=== PATIENT | female | born 1980 | race Caucasian/White ===

== ENCOUNTER 2018-02-12 14:28 | Inpatient (IN) | payer OTHER ==
[~2018-02-12] VITALS: Ht 165.1 cm; Wt 89.9 kg
[~2018-02-12 14:28] MED LIST: ALBU18HF INH; AZIT500T5 PO; CEFD300C37 PO; OXYC-302 PO
[2018-02-12] MEDS ORDERED: DEXAMETHASONE 4 MG/ML, 1ML IVPush ONE (16:00)
[2018-02-12] MEDS ORDERED: SODIUM CHLORIDE 0.9% 1,000 ML IV ONE ×2 (16:00→17:00)
[2018-02-12] MEDS ORDERED: ONDANSETRON ODT 4 MG PO PRN (16:30)
[2018-02-12] MEDS ORDERED: ONDANSETRON 2MG/ML, 2ML IVPush PRN (16:30)
[2018-02-12] MEDS ORDERED: DEXAMETHASONE 4 MG/ML, 1ML ONE (16:48)
[2018-02-12] MEDS ORDERED: SODIUM CHLORIDE FLUSH 10ML SYR IVF PRN (17:00)
[2018-02-12] MEDS ORDERED: SODIUM CHLORIDE FLUSH 10ML SYR IVF ONE (17:00)
[2018-02-12] MEDS ORDERED: KETOROLAC 30 MG/1 ML ONE (17:02)
[2018-02-12] MEDS: KETOROLAC 30 MG/1 ML IV PRN (17:02)
[2018-02-12 17:07] LABS: HCT (SEDRATE) 37.3 % (34.6-47.8)
[2018-02-12] MEDS ORDERED: NS + 20MEQ KCL 1,000 ML IV SCH (18:00)
[2018-02-12] MEDS: AMPICILLIN/SULBACTAM 3 GM in SODIUM CHLORIDE 0.9% 100 ML IV SCH (18:07)
[2018-02-12 18:35] VITALS: BP 86/59
[2018-02-12] MEDS ORDERED: SODIUM CHLORIDE 0.9% 1,000 ML IV SCH (19:30)
[2018-02-12 19:46] LABS: MEAN CORPUSCULAR HEMOGLOBIN 30.6 pg (27.0-34.8); MEAN CORPUSCULAR VOLUME 90.1 fL (80-100); MEAN PLATELET VOLUME 7.9 fL (7.4-10.4); PLATELET COUNT 232 x10^3/uL (130-400); RED BLOOD COUNT 3.97 x10^6/uL (3.82-5.3); RED CELL DISTRIBUTION WIDTH 13.3 % (9.6-15.2)
[2018-02-12 19:52] LABS: MD YES
[2018-02-12 19:55] LABS: INTERNATIONAL NORMALIZED RATIO 1.23 (0.93-1.1); PROTHROMBIN TIME 12.6 Seconds (9.6-11.5)
[2018-02-12 19:58] LABS: ALANINE AMINOTRANSFERASE 41 U/L (12-78); ALBUMIN 2.5 g/dL (3.4-5.0); ANION GAP 9 mmol/L (5-15); CALCIUM 7.6 mg/dL (8.5-10.1); CHLORIDE 110 mmol/L (98-107); CREATININE 0.41 mg/dL (0.55-1.02)
[2018-02-12 20:00] LABS: ALKALINE PHOSPHATASE 77 U/L (45-117); BILIRUBIN,TOTAL 0.9 mg/dL (0.2-1.0); TOTAL PROTEIN 6.2 g/dL (6.4-8.2)
[2018-02-12] MEDS ORDERED: PHARMACOKINETIC CONSULTATION MC ONE (20:00)
[2018-02-12] MEDS ORDERED: VANCOMYCIN PER PHARMACY MC PRN (20:00)
[2018-02-12] MEDS ORDERED: PHARMACOKINETIC MONITORING MC PRN (20:00)
[2018-02-12 20:14] VITALS: BP 83/59
[2018-02-12 20:25] LABS: BAND#(MANUAL) 0.38 x10^3/uL; BANDS%(MANUAL) 2 % (0-7); LYMPH#(MANUAL) 1.13 x10^3/uL (1-3.4); LYMPHS% (MANUAL) 6 % (22-44); MONOS#(MANUAL) 0.94 x10^3/uL (0.3-2.7); MONOS% (MANUAL) 5 % (2-9); SEG#(MANUAL) 16.36 x10^3/uL (1.8-6.8); SEGS% (MANUAL) 87 % (42-75)
[2018-02-12 20:26] LABS: <PLATELET ESTIMATE> ADEQUATE; <PLT MORPHOLOGY> NORMAL PLT MORPH; <RBC MORPHOLOGY> NORMAL
[2018-02-12 20:55] VITALS: BP 86/68
[2018-02-12] MEDS: SODIUM CHLORIDE 0.9% 1,000 ML IV SCH (21:00)
[2018-02-12] MEDS ORDERED: MAGNESIUM SULFATE PMX 2GM/50ML 50 ML IV ONE (21:00)
[2018-02-12 21:10] VITALS: BP 89/65
[2018-02-12] MEDS: VANCOMYCIN 1,600 MG in SODIUM CHLORIDE 0.9% 250 ML IV SCH (21:20)
[2018-02-12 23:31] VITALS: BP 95/67
[2018-02-13 00:43] VITALS: BP 86/61
[2018-02-13] MEDS: SODIUM CHLORIDE 0.9% 1,000 ML IV SCH ×4 (01:00→13:08)
[2018-02-13] MEDS: DEXAMETHASONE 4 MG/ML, 1ML IVPush SCH ×3 (01:33→17:37)
[2018-02-13] MEDS: AMPICILLIN/SULBACTAM 3 GM in SODIUM CHLORIDE 0.9% 100 ML IV SCH ×4 (01:33→20:04)
[2018-02-13 05:33] VITALS: BP 80/50
[2018-02-13 06:06] LABS: MEAN CORPUSCULAR HEMOGLOBIN 30.7 pg (27.0-34.8); MEAN CORPUSCULAR HGB CONC 33.6 g/dL (32.4-35.8); MEAN CORPUSCULAR VOLUME 91.4 fL (80-100); MEAN PLATELET VOLUME 8.2 fL (7.4-10.4); PLATELET COUNT 242 x10^3/uL (130-400); RED BLOOD COUNT 3.94 x10^6/uL (3.82-5.3); RED CELL DISTRIBUTION WIDTH 13.9 % (9.6-15.2)
[2018-02-13 06:16] LABS: ANION GAP 11 mmol/L (5-15); CALCIUM 8.1 mg/dL (8.5-10.1); CHLORIDE 112 mmol/L (98-107)
[2018-02-13 06:17] LABS: CREATININE 0.34 mg/dL (0.55-1.02)
[2018-02-13 06:29] LABS: MD YES
[2018-02-13 06:33] LABS: BAND#(MANUAL) 0.19 x10^3/uL; BANDS%(MANUAL) 1 % (0-7); LYMPH#(MANUAL) 0.38 x10^3/uL (1-3.4); LYMPHS% (MANUAL) 2 % (22-44); MONOS#(MANUAL) 0.38 x10^3/uL (0.3-2.7); MONOS% (MANUAL) 2 % (2-9); SEG#(MANUAL) 17.86 x10^3/uL (1.8-6.8); SEGS% (MANUAL) 95 % (42-75)
[2018-02-13 06:34] LABS: <RBC MORPHOLOGY> NORMAL
[2018-02-13 06:35] LABS: <PLATELET ESTIMATE> ADEQUATE; <PLT MORPHOLOGY> NORMAL PLT MORPH
[2018-02-13 07:18] VITALS: BP 103/64
[2018-02-13] MEDS: VANCOMYCIN 1,600 MG in SODIUM CHLORIDE 0.9% 250 ML IV SCH ×2 (10:41→21:15)
[2018-02-13 13:09] VITALS: BP 80/53
[2018-02-13] MEDS: KETOROLAC 30 MG/1 ML IV PRN (13:19)
[2018-02-13 14:11] VITALS: BP 94/62
[2018-02-13 15:47] LABS: AMPHETAMINE SCREEN, URINE Negative (Negative); BARBITURATE SCREEN, URINE Negative (Negative); BENZODIAZEPINE SCREEN, URINE Negative (Negative); CANNABINOID SCREEN, URINE Negative (Negative); COCAINE SCREEN, URINE Negative (Negative); METHADONE SCREEN, URINE Negative (Negative); OPIATE SCREEN, URINE Negative (Negative)
[2018-02-13] MEDS: D5%-0.45% NACL 1,000 ML IV SCH (17:35)
[2018-02-13] MEDS ORDERED: NS + 20MEQ KCL 1,000 ML IV SCH (18:00)
[2018-02-13 19:50] VITALS: BP 94/61
[2018-02-14] MEDS: DEXAMETHASONE 4 MG/ML, 1ML IVPush SCH ×3 (01:12→16:50)
[2018-02-14] MEDS: KETOROLAC 30 MG/1 ML IV PRN ×3 (01:22→21:18)
[2018-02-14] MEDS: AMPICILLIN/SULBACTAM 3 GM in SODIUM CHLORIDE 0.9% 100 ML IV SCH ×4 (01:57→21:18)
[2018-02-14] MEDS: D5%-0.45% NACL 1,000 ML IV SCH ×2 (01:58→08:25)
[2018-02-14 02:22] VITALS: BP 98/68
[2018-02-14 05:00] LABS: MEAN CORPUSCULAR HEMOGLOBIN 30.5 pg (27.0-34.8); MEAN CORPUSCULAR VOLUME 89.7 fL (80-100); MEAN PLATELET VOLUME 8.1 fL (7.4-10.4); PLATELET COUNT 243 x10^3/uL (130-400); RED BLOOD COUNT 3.82 x10^6/uL (3.82-5.3); RED CELL DISTRIBUTION WIDTH 13.9 % (9.6-15.2)
[2018-02-14 05:05] LABS: ALBUMIN 2.1 g/dL (3.4-5.0); ANION GAP 8 mmol/L (5-15); CALCIUM 8.1 mg/dL (8.5-10.1); CHLORIDE 112 mmol/L (98-107)
[2018-02-14 05:06] LABS: CREATININE 0.43 mg/dL (0.55-1.02)
[2018-02-14 06:05] LABS: MD YES
[2018-02-14 06:07] LABS: BAND#(MANUAL) 0.52 x10^3/uL; BANDS%(MANUAL) 3 % (0-7); LYMPH#(MANUAL) 0.52 x10^3/uL (1-3.4); LYMPHS% (MANUAL) 3 % (22-44); MONOS#(MANUAL) 0.17 x10^3/uL (0.3-2.7); MONOS% (MANUAL) 1 % (2-9); SEGS% (MANUAL) 93 % (42-75)
[2018-02-14 06:08] LABS: <PLATELET ESTIMATE> ADEQUATE; <PLT MORPHOLOGY> NORMAL PLT MORPH; <RBC MORPHOLOGY> NORMAL
[2018-02-14] MEDS ORDERED: SODIUM PHOSPHATE 4 MEQ/ML IV SCH (07:30)
[2018-02-14 08:01] VITALS: BP 93/63
[2018-02-14] MEDS ORDERED: SODIUM PHOSPHATE 30 MMOL in SODIUM CHLORIDE 0.9% 500 ML IV ONE (11:00)
[2018-02-14] MEDS: SODIUM CHLORIDE 0.9% 1,000 ML IV SCH ×2 (11:59→21:00)
[2018-02-14] MEDS: VANCOMYCIN 1,600 MG in SODIUM CHLORIDE 0.9% 250 ML IV SCH ×2 (11:59→21:00)
[2018-02-14 13:18] VITALS: BP 100/68
[2018-02-14] MEDS: POLYETHYLENE GLYCOL 17 GM PACKET PO PRN (16:50)
[2018-02-14 20:23] VITALS: BP 96/61
[2018-02-14] MEDS: VANCOMYCIN 1,800 MG in SODIUM CHLORIDE 0.9% 250 ML IV SCH (22:11)
[2018-02-15 03:16] VITALS: BP 123/82
[2018-02-15] MEDS: AMPICILLIN/SULBACTAM 3 GM in SODIUM CHLORIDE 0.9% 100 ML IV SCH ×3 (03:26→15:10)
[2018-02-15] MEDS: SODIUM CHLORIDE 0.9% 1,000 ML IV SCH (03:40)
[2018-02-15 05:54] LABS: BASOPHILS % (AUTO) 0 % (0-1); EOSINOPHILS % (AUTO) 0 % (1-7); LYMPHOCYTES # (AUTO) 0.77 x10^3/uL (1-3.4); LYMPHOCYTES % (AUTO) 6 % (22-44); MD NO; MEAN CORPUSCULAR HGB CONC 33.4 g/dL (32.4-35.8); MEAN CORPUSCULAR VOLUME 89.9 fL (80-100); MONOCYTES % (AUTO) 2 % (2-9); NEUTROPHILS # (AUTO) 12.23 x10^3/uL (1.8-6.8); NEUTROPHILS % (AUTO) 92 % (42-75); PLATELET COUNT 302 x10^3/uL (130-400); RED BLOOD COUNT 3.75 x10^6/uL (3.82-5.3); RED CELL DISTRIBUTION WIDTH 13.7 % (9.6-15.2)
[2018-02-15 06:02] LABS: ALANINE AMINOTRANSFERASE 75 U/L (12-78); ALBUMIN 2.2 g/dL (3.4-5.0); ANION GAP 11 mmol/L (5-15); CALCIUM 8.3 mg/dL (8.5-10.1); CHLORIDE 113 mmol/L (98-107); CREATININE 0.44 mg/dL (0.55-1.02)
[2018-02-15 06:04] LABS: ALKALINE PHOSPHATASE 75 U/L (45-117); BILIRUBIN,TOTAL 0.2 mg/dL (0.2-1.0); TOTAL PROTEIN 5.9 g/dL (6.4-8.2)
[2018-02-15 07:48] VITALS: BP 121/74
[2018-02-15] MEDS: KETOROLAC 30 MG/1 ML IV PRN ×2 (08:54→17:20)
[2018-02-15] MEDS: SODIUM CHLORIDE 0.45% 1,000 ML IV SCH ×2 (08:54→20:07)
[2018-02-15] MEDS: VANCOMYCIN 1,800 MG in SODIUM CHLORIDE 0.9% 250 ML IV SCH (10:11)
[2018-02-15 12:56] VITALS: BP 111/70
[2018-02-15] MEDS: CEFAZOLIN PMX 2GM/50ML 50 ML IVPB SCH (17:20)
[2018-02-15 19:10] VITALS: BP 127/79
[2018-02-16] MEDS: CEFAZOLIN PMX 2GM/50ML 50 ML IVPB SCH ×2 (00:47→08:52)
[2018-02-16] MEDS: KETOROLAC 30 MG/1 ML IV PRN ×4 (01:23→23:27)
[2018-02-16 01:26] VITALS: BP 105/67
[2018-02-16] MEDS: SODIUM CHLORIDE 0.45% 1,000 ML IV SCH ×2 (03:58→12:38)
[2018-02-16 05:59] LABS: BASOPHILS % (AUTO) 0 % (0-1); EOSINOPHILS # (AUTO) 0.01 x10^3/uL (0-0.4); EOSINOPHILS % (AUTO) 0 % (1-7); LYMPHOCYTES # (AUTO) 1.99 x10^3/uL (1-3.4); LYMPHOCYTES % (AUTO) 16 % (22-44); MD NO; MEAN CORPUSCULAR HEMOGLOBIN 30.4 pg (27.0-34.8); MEAN CORPUSCULAR HGB CONC 33.9 g/dL (32.4-35.8); MEAN CORPUSCULAR VOLUME 89.7 fL (80-100); MONOCYTES # (AUTO) 0.81 x10^3/uL (0.2-0.8); MONOCYTES % (AUTO) 6 % (2-9); NEUTROPHILS # (AUTO) 10.02 x10^3/uL (1.8-6.8); NEUTROPHILS % (AUTO) 78 % (42-75); PLATELET COUNT 320 x10^3/uL (130-400); RED CELL DISTRIBUTION WIDTH 14.1 % (9.6-15.2)
[2018-02-16 06:05] LABS: ALBUMIN 2.2 g/dL (3.4-5.0); ANION GAP 10 mmol/L (5-15); CALCIUM 8.1 mg/dL (8.5-10.1); CHLORIDE 109 mmol/L (98-107)
[2018-02-16 06:07] LABS: CREATININE 0.52 mg/dL (0.55-1.02)
[2018-02-16 07:14] VITALS: BP 133/76
[2018-02-16] MEDS: AMPICILLIN/SULBACTAM 3 GM in SODIUM CHLORIDE 0.9% 100 ML IV SCH ×3 (11:15→23:27)
[2018-02-16 13:00] VITALS: BP 121/81
[2018-02-16 20:25] VITALS: BP 109/75
[2018-02-17] MEDS: SODIUM CHLORIDE 0.45% 1,000 ML IV SCH ×2 (02:23→15:40)
[2018-02-17] MEDS: OXYcodone IR 5MG TABLET PO PRN (03:48)
[2018-02-17 03:52] VITALS: BP 104/72
[2018-02-17] MEDS: AMPICILLIN/SULBACTAM 3 GM in SODIUM CHLORIDE 0.9% 100 ML IV SCH ×4 (05:15→23:01)
[2018-02-17] MEDS: KETOROLAC 30 MG/1 ML IV PRN ×2 (05:28→12:03)
[2018-02-17 05:38] LABS: BASOPHILS # (AUTO) 0.04 x10^3/uL (0-0.1); BASOPHILS % (AUTO) 0 % (0-1); EOSINOPHILS # (AUTO) 0.11 x10^3/uL (0-0.4); EOSINOPHILS % (AUTO) 1 % (1-7); LYMPHOCYTES # (AUTO) 2.74 x10^3/uL (1-3.4); LYMPHOCYTES % (AUTO) 19 % (22-44); MD NO; MEAN CORPUSCULAR HEMOGLOBIN 30.5 pg (27.0-34.8); MEAN CORPUSCULAR HGB CONC 34.1 g/dL (32.4-35.8); MEAN CORPUSCULAR VOLUME 89.5 fL (80-100); MEAN PLATELET VOLUME 7.4 fL (7.4-10.4); MONOCYTES # (AUTO) 0.86 x10^3/uL (0.2-0.8); MONOCYTES % (AUTO) 6 % (2-9); NEUTROPHILS # (AUTO) 11.06 x10^3/uL (1.8-6.8); NEUTROPHILS % (AUTO) 75 % (42-75); PLATELET COUNT 419 x10^3/uL (130-400); RED BLOOD COUNT 4.37 x10^6/uL (3.82-5.3); RED CELL DISTRIBUTION WIDTH 13.7 % (9.6-15.2)
[2018-02-17 05:46] LABS: ALBUMIN 2.6 g/dL (3.4-5.0); ANION GAP 7 mmol/L (5-15); CALCIUM 8.5 mg/dL (8.5-10.1); CHLORIDE 104 mmol/L (98-107)
[2018-02-17 05:49] LABS: ALANINE AMINOTRANSFERASE 64 U/L (12-78); ALKALINE PHOSPHATASE 81 U/L (45-117); BILIRUBIN,TOTAL 0.5 mg/dL (0.2-1.0); CREATININE 0.55 mg/dL (0.55-1.02); TOTAL PROTEIN 6.5 g/dL (6.4-8.2)
[2018-02-17 07:14] VITALS: BP 106/76
[2018-02-17] MEDS ORDERED: SODIUM CHLORIDE 0.45% 1,000 ML IV SCH (08:00)
[2018-02-17] MEDS ORDERED: OMNIPAQUE 350 MG/ML, 100ML BOTTLE ONE (08:02)
[2018-02-17 12:53] VITALS: BP 100/71
[2018-02-17] MEDS ORDERED: ENOXAPARIN 40 MG/0.4 ML SQ SCH (15:00)
[2018-02-17] MEDS ORDERED: FENTANYL PF 100 MCG/2ML ONE ×2 (16:22→17:30)
[2018-02-17] MEDS ORDERED: DEXMEDETOMIDINE 200 MCG/2 ML ONE (16:41)
[2018-02-17] MEDS ORDERED: VANCOMYCIN 1,000 MG ONE (16:57)
[2018-02-17] MEDS ORDERED: BACITRACIN 50,000 UNIT ONE (16:59)
[2018-02-17] MEDS ORDERED: PROPOFOL 10 MG/ML, 20ML ONE (17:49)
[2018-02-17] MEDS ORDERED: NEOSTIGMINE 1 MG/ML, 10ML ONE (17:49)
[2018-02-17] MEDS ORDERED: CEFAZOLIN 1,000 MG ONE (17:49)
[2018-02-17] MEDS ORDERED: ROCURONIUM 10MG/ML,5ML ONE (17:49)
[2018-02-17] MEDS ORDERED: GLYCOPYRROLATE 0.2MG/1ML, 5ML ONE (17:49)
[2018-02-17] MEDS ORDERED: SUCCINYLCHOLINE 20 MG/ML, 10ML ONE (17:49)
[2018-02-17] MEDS ORDERED: ONDANSETRON 2MG/ML, 2ML ONE (17:49)
[2018-02-17] MEDS ORDERED: DEXAMETHASONE 4 MG/ML, 1ML ONE (17:49)
[2018-02-17] MEDS ORDERED: OXYcodone 5 MG/5 ML ORAL.SOL UDC ONE (18:19)
[2018-02-17] MEDS ORDERED: LABETALOL 5MG/ML, 20ML IV PRN (18:30)
[2018-02-17] MEDS ORDERED: HALOPERIDOL 5 MG/ML IV PRN (18:30)
[2018-02-17] MEDS ORDERED: MEPERIDINE/PF 25MG/0.5ML IVPush PRN (18:30)
[2018-02-17] MEDS ORDERED: FENTANYL PF 100 MCG/2ML IV PRN (18:30)
[2018-02-17] MEDS ORDERED: hydrALAzine 20 MG/ML, 1ML IV PRN (18:30)
[2018-02-17] MEDS ORDERED: OXYcodone 5 MG/5 ML ORAL.SOL UDC PO PRN (18:30)
[2018-02-17] MEDS ORDERED: HYDROmorphone 1 MG/ML, 1ML IV PRN (18:30)
[2018-02-17] MEDS ORDERED: DIPHENHYDRAMINE 50 MG/ML, 1ML IVPush PRN (18:30)
[2018-02-17] MEDS ORDERED: PROCHLORPERAZINE 5 MG/ML, 2ML IV PRN (18:30)
[2018-02-17 18:35] LABS: HCG UR SG 1.016 (1.003-1.030)
[2018-02-17 19:00] VITALS: BP 107/74
[2018-02-18 00:45] VITALS: BP 110/76
[2018-02-18] MEDS: OXYcodone IR 5MG TABLET PO PRN ×2 (04:06→11:23)
[2018-02-18] MEDS: SODIUM CHLORIDE 0.45% 1,000 ML IV SCH ×2 (04:10→18:07)
[2018-02-18] MEDS: AMPICILLIN/SULBACTAM 3 GM in SODIUM CHLORIDE 0.9% 100 ML IV SCH ×4 (05:07→23:15)
[2018-02-18 05:16] LABS: BASOPHILS # (AUTO) 0.02 x10^3/uL (0-0.1); BASOPHILS % (AUTO) 0 % (0-1); EOSINOPHILS % (AUTO) 0 % (1-7); LYMPHOCYTES # (AUTO) 0.94 x10^3/uL (1-3.4); LYMPHOCYTES % (AUTO) 6 % (22-44); MD NO; MEAN CORPUSCULAR HEMOGLOBIN 30.9 pg (27.0-34.8); MEAN CORPUSCULAR HGB CONC 34.1 g/dL (32.4-35.8); MEAN CORPUSCULAR VOLUME 90.6 fL (80-100); MEAN PLATELET VOLUME 7.5 fL (7.4-10.4); MONOCYTES # (AUTO) 0.21 x10^3/uL (0.2-0.8); MONOCYTES % (AUTO) 1 % (2-9); NEUTROPHILS # (AUTO) 14.85 x10^3/uL (1.8-6.8); NEUTROPHILS % (AUTO) 93 % (42-75); PLATELET COUNT 483 x10^3/uL (130-400); RED BLOOD COUNT 4.44 x10^6/uL (3.82-5.3); RED CELL DISTRIBUTION WIDTH 13.5 % (9.6-15.2)
[2018-02-18 05:30] LABS: ALANINE AMINOTRANSFERASE 162 U/L (12-78); ALBUMIN 2.6 g/dL (3.4-5.0); ANION GAP 6 mmol/L (5-15); CALCIUM 9.1 mg/dL (8.5-10.1); CHLORIDE 103 mmol/L (98-107); CREATININE 0.54 mg/dL (0.55-1.02)
[2018-02-18 05:32] LABS: ALKALINE PHOSPHATASE 156 U/L (45-117); BILIRUBIN,TOTAL 0.4 mg/dL (0.2-1.0); TOTAL PROTEIN 6.8 g/dL (6.4-8.2)
[2018-02-18 07:29] VITALS: BP 109/74
[2018-02-18 13:25] VITALS: BP 105/72
[2018-02-18] MEDS: POLYETHYLENE GLYCOL 17 GM PACKET PO PRN (16:01)
[2018-02-18 20:46] VITALS: BP 124/78
[2018-02-18] MEDS: METHOCARBAMOL 500 MG TABLET PO PRN (23:15)
[2018-02-19 04:12] VITALS: BP 129/75
[2018-02-19] MEDS: AMPICILLIN/SULBACTAM 3 GM in SODIUM CHLORIDE 0.9% 100 ML IV SCH ×4 (04:58→23:25)
[2018-02-19 05:26] LABS: BASOPHILS # (AUTO) 0.13 x10^3/uL (0-0.1); BASOPHILS % (AUTO) 1 % (0-1); EOSINOPHILS # (AUTO) 0.12 x10^3/uL (0-0.4); EOSINOPHILS % (AUTO) 1 % (1-7); LYMPHOCYTES # (AUTO) 3.35 x10^3/uL (1-3.4); LYMPHOCYTES % (AUTO) 22 % (22-44); MD NO; MEAN CORPUSCULAR HEMOGLOBIN 30.4 pg (27.0-34.8); MEAN CORPUSCULAR HGB CONC 33.7 g/dL (32.4-35.8); MEAN CORPUSCULAR VOLUME 90.3 fL (80-100); MEAN PLATELET VOLUME 7.1 fL (7.4-10.4); MONOCYTES # (AUTO) 1.15 x10^3/uL (0.2-0.8); MONOCYTES % (AUTO) 8 % (2-9); NEUTROPHILS # (AUTO) 10.27 x10^3/uL (1.8-6.8); NEUTROPHILS % (AUTO) 68 % (42-75); PLATELET COUNT 460 x10^3/uL (130-400); RED BLOOD COUNT 4.03 x10^6/uL (3.82-5.3); RED CELL DISTRIBUTION WIDTH 13.9 % (9.6-15.2)
[2018-02-19 05:37] LABS: CALCIUM 8.2 mg/dL (8.5-10.1); CHLORIDE 108 mmol/L (98-107)
[2018-02-19 05:43] LABS: ALANINE AMINOTRANSFERASE 100 U/L (12-78); ALBUMIN 2.4 g/dL (3.4-5.0); ALKALINE PHOSPHATASE 102 U/L (45-117); ANION GAP 7 mmol/L (5-15); BILIRUBIN,TOTAL 0.2 mg/dL (0.2-1.0); CREATININE 0.67 mg/dL (0.55-1.02); TOTAL PROTEIN 6.1 g/dL (6.4-8.2)
[2018-02-19 07:25] VITALS: BP 105/70
[2018-02-19] MEDS: SODIUM CHLORIDE 0.45% 1,000 ML IV SCH (07:40)
[2018-02-19] MEDS ORDERED: LORazepam 2 MG/ML, 1ML ONE (11:03)
[2018-02-19] MEDS ORDERED: LORazepam 2 MG/ML, 1ML IVPush PRN (11:30)
[2018-02-19 13:05] VITALS: BP 115/81
[2018-02-19] MEDS: LORazepam 0.5MG TABLET PO PRN ×2 (14:38→18:26)
[2018-02-19] MEDS: METHOCARBAMOL 500 MG TABLET PO PRN (18:15)
[2018-02-19 20:00] VITALS: BP 106/66
[2018-02-19] MEDS: OXYcodone IR 5MG TABLET PO PRN (23:25)
[2018-02-20 00:47] VITALS: BP 109/80
[2018-02-20] MEDS: SODIUM CHLORIDE 0.45% 1,000 ML IV SCH ×2 (01:12→16:52)
[2018-02-20 04:53] LABS: ALANINE AMINOTRANSFERASE 97 U/L (12-78); ALBUMIN 2.9 g/dL (3.4-5.0); ANION GAP 7 mmol/L (5-15); CALCIUM 8.9 mg/dL (8.5-10.1); CHLORIDE 101 mmol/L (98-107); CREATININE 0.62 mg/dL (0.55-1.02)
[2018-02-20 04:54] LABS: MEAN CORPUSCULAR HGB CONC 33.5 g/dL (32.4-35.8); MEAN CORPUSCULAR VOLUME 89.4 fL (80-100); PLATELET COUNT 565 x10^3/uL (130-400); RED BLOOD COUNT 4.57 x10^6/uL (3.82-5.3); RED CELL DISTRIBUTION WIDTH 13.6 % (9.6-15.2)
[2018-02-20 04:55] LABS: ALKALINE PHOSPHATASE 114 U/L (45-117); BILIRUBIN,TOTAL 0.3 mg/dL (0.2-1.0); TOTAL PROTEIN 7.3 g/dL (6.4-8.2)
[2018-02-20] MEDS: LORazepam 0.5MG TABLET PO PRN ×2 (05:18→19:31)
[2018-02-20] MEDS: METHOCARBAMOL 500 MG TABLET PO PRN (05:18)
[2018-02-20] MEDS: AMPICILLIN/SULBACTAM 3 GM in SODIUM CHLORIDE 0.9% 100 ML IV SCH (05:18)
[2018-02-20 05:33] LABS: BASOPHILS # (AUTO) 0.05 x10^3/uL (0-0.1); BASOPHILS % (AUTO) 0 % (0-1); EOSINOPHILS # (AUTO) 0.28 x10^3/uL (0-0.4); EOSINOPHILS % (AUTO) 2 % (1-7); LYMPHOCYTES # (AUTO) 4.01 x10^3/uL (1-3.4); LYMPHOCYTES % (AUTO) 21 % (22-44); MD SCAN; MONOCYTES # (AUTO) 1.46 x10^3/uL (0.2-0.8); MONOCYTES % (AUTO) 8 % (2-9); NEUTROPHILS % (AUTO) 70 % (42-75)
[2018-02-20 07:58] VITALS: BP 104/72
[2018-02-20] MEDS: ERTAPENEM 1 GM in SODIUM CHLORIDE 0.9% 50 ML IV SCH (08:53)
[2018-02-20 14:00] VITALS: BP 106/67
[2018-02-20] MEDS: OXYcodone IR 5MG TABLET PO PRN (19:32)
[2018-02-20 19:42] VITALS: BP 106/71
[2018-02-21 03:31] VITALS: BP 114/73
[2018-02-21] MEDS: OXYcodone IR 5MG TABLET PO PRN (03:34)
[2018-02-21 03:55] LABS: BASOPHILS # (AUTO) 0.04 x10^3/uL (0-0.1); BASOPHILS % (AUTO) 0 % (0-1); EOSINOPHILS # (AUTO) 0.19 x10^3/uL (0-0.4); EOSINOPHILS % (AUTO) 2 % (1-7); LYMPHOCYTES # (AUTO) 2.76 x10^3/uL (1-3.4); LYMPHOCYTES % (AUTO) 21 % (22-44); MD NO; MEAN CORPUSCULAR HEMOGLOBIN 30.5 pg (27.0-34.8); MEAN CORPUSCULAR HGB CONC 34.1 g/dL (32.4-35.8); MEAN CORPUSCULAR VOLUME 89.2 fL (80-100); MONOCYTES # (AUTO) 1.27 x10^3/uL (0.2-0.8); MONOCYTES % (AUTO) 10 % (2-9); NEUTROPHILS # (AUTO) 8.74 x10^3/uL (1.8-6.8); NEUTROPHILS % (AUTO) 67 % (42-75); PLATELET COUNT 498 x10^3/uL (130-400); RED BLOOD COUNT 4.46 x10^6/uL (3.82-5.3); RED CELL DISTRIBUTION WIDTH 13.8 % (9.6-15.2)
[2018-02-21 03:58] LABS: ALANINE AMINOTRANSFERASE 70 U/L (12-78); ALBUMIN 2.7 g/dL (3.4-5.0); ANION GAP 3 mmol/L (5-15); CALCIUM 9.2 mg/dL (8.5-10.1); CHLORIDE 104 mmol/L (98-107); CREATININE 0.59 mg/dL (0.55-1.02)
[2018-02-21 04:00] LABS: ALKALINE PHOSPHATASE 108 U/L (45-117); BILIRUBIN,TOTAL 0.2 mg/dL (0.2-1.0); TOTAL PROTEIN 6.9 g/dL (6.4-8.2)
[2018-02-21] MEDS: SODIUM CHLORIDE 0.45% 1,000 ML IV SCH (05:40)
[2018-02-21 07:36] VITALS: BP 95/67
[2018-02-21] MEDS: ERTAPENEM 1 GM in SODIUM CHLORIDE 0.9% 50 ML IV SCH (09:00)
== END 2018-02-21 12:50 | disposition home or self-care (01) | DRG 854 ==
LOC: ED 15:35 → EDIP 15:36 → ED 15:51 → 4EST 17:28
PROVIDERS: ADMIT Internal Medicine; ATTEND Internal Medicine
PROC: 0W9600Z Drainage of Neck with Drainage Device, Open Approach (ICD-10-PCS; 2018-02-17)
PROC: 07T20ZZ Resection of Left Neck Lymphatic, Open Approach (ICD-10-PCS; principal; 2018-02-17 16:45)
PROC: 02HV33Z Insertion of Infusion Device into Superior Vena Cava, Percutaneous Approach (ICD-10-PCS; 2018-02-19)
PROC: B5181ZA Fluoroscopy of Superior Vena Cava using Low Osmolar Contrast, Guidance (ICD-10-PCS; 2018-02-19)
DX: A41.01 Sepsis due to Methicillin susceptible Staphylococcus aureus (principal); E44.0 Moderate protein-calorie malnutrition; J39.0 Retropharyngeal and parapharyngeal abscess; Z90.49 Acquired absence of other specified parts of digestive tract; D63.8 Anemia in other chronic diseases classified elsewhere; E66.9 Obesity, unspecified; E87.6 Hypokalemia; K11.20 Sialoadenitis, unspecified; Z82.49 Family history of ischemic heart disease and other diseases of the circulatory system; Z82.5 Family history of asthma and other chronic lower respiratory diseases; Z87.01 Personal history of pneumonia (recurrent); Z72.89 Other problems related to lifestyle; Z88.2 Allergy status to sulfonamides; F17.210 Nicotine dependence, cigarettes, uncomplicated; I95.9 Hypotension, unspecified; Z79.899 Other long term (current) drug therapy; Z68.33 Body mass index [BMI] 33.0-33.9, adult; F19.11 Other psychoactive substance abuse, in remission
CPT/HCPCS: 36415; 72040; 77001; 99285; J3490; 36569; 70460; 70491; 76937; 80048; 80053; 80202; 80307; 81025; 82040; 83605; 83735; 84100; 85025; 85610; 85651; 87015; 87040; 87070; 87075; 87077; 87102; 87116; 87147; 87186; 87205; 87206; 93306; 96374; 96375; G0378; J0295; J0690; J1100; J1335; J1885; J2405; J2704; J2710; J3010; J3370; Q9967; C1751; J0330; J2060; J3475; J7030; J7040; J7050

== ENCOUNTER 2018-03-13 13:01 | Emergency (ER) | payer OTHER ==
[~2018-03-13] VITALS: Ht 162.6 cm; Wt 83.0 kg
[2018-03-13] MEDS ORDERED: SODIUM CHLORIDE FLUSH 10ML SYR IVF ONE (13:30)
[2018-03-13 14:08] LABS: BASOPHILS # (AUTO) 0.03 x10^3/uL (0-0.1); BASOPHILS % (AUTO) 0 % (0-1); EOSINOPHILS # (AUTO) 0.14 x10^3/uL (0-0.4); EOSINOPHILS % (AUTO) 1 % (1-7); LYMPHOCYTES # (AUTO) 1.41 x10^3/uL (1-3.4); LYMPHOCYTES % (AUTO) 12 % (22-44); MD NO; MEAN CORPUSCULAR HEMOGLOBIN 29.2 pg (27.0-34.8); MEAN CORPUSCULAR HGB CONC 33.5 g/dL (32.4-35.8); MEAN CORPUSCULAR VOLUME 87.1 fL (80-100); MEAN PLATELET VOLUME 7.1 fL (7.4-10.4); MONOCYTES # (AUTO) 0.59 x10^3/uL (0.2-0.8); MONOCYTES % (AUTO) 5 % (2-9); NEUTROPHILS # (AUTO) 9.65 x10^3/uL (1.8-6.8); NEUTROPHILS % (AUTO) 82 % (42-75); PLATELET COUNT 324 x10^3/uL (130-400); RED BLOOD COUNT 4.39 x10^6/uL (3.82-5.3); RED CELL DISTRIBUTION WIDTH 13.8 % (9.6-15.2)
[2018-03-13 14:16] LABS: ALANINE AMINOTRANSFERASE 28 U/L (12-78); ALBUMIN 2.9 g/dL (3.4-5.0); ANION GAP 11 mmol/L (5-15); CALCIUM 7.8 mg/dL (8.5-10.1); CHLORIDE 110 mmol/L (98-107); CREATININE 0.68 mg/dL (0.55-1.02)
[2018-03-13 14:20] LABS: ALKALINE PHOSPHATASE 81 U/L (45-117); BILIRUBIN,TOTAL 0.5 mg/dL (0.2-1.0); TOTAL PROTEIN 6.3 g/dL (6.4-8.2)
[2018-03-13 14:59] VITALS: BP 114/71
[2018-03-13] MEDS ORDERED: SODIUM CHLORIDE 0.9% 1,000ML IVBOLUS ONE (16:30)
[2018-03-13] MEDS ORDERED: POTASSIUM CHLORIDE 20 MEQ TAB.ER.PRT PO ONE (16:30)
[2018-03-13] MEDS ORDERED: POTASSIUM CHLORIDE 20 MEQ TAB.ER.PRT ONE (16:45)
[2018-03-13 17:18] LABS: MICROSCOPIC INDICATED
[2018-03-13 17:21] LABS: CULTURE INDICATED? NO
== END 2018-03-13 18:12 | disposition home or self-care (01) ==
LOC: ED 13:47
DX: E86.0 Dehydration (principal); E87.6 Hypokalemia; R55 Syncope and collapse; F15.20 Other stimulant dependence, uncomplicated; F11.20 Opioid dependence, uncomplicated; Z72.9 Problem related to lifestyle, unspecified
CPT/HCPCS: 36415; 80053; 81001; 83690; 84703; 85025; 96360; 99284; J7030

== ENCOUNTER 2020-03-17 16:43 | Emergency (ER) | payer SELFPAY ==
[~2020-03-17] VITALS: Ht 162.6 cm; Wt 94.1 kg
[~2020-03-17 16:43] MED LIST changes: +AZIT500T10 PO; -AZIT500T5 PO
[2020-03-17 17:53] VITALS: BP 114/53
[2020-03-17] MEDS ORDERED: ACETAMINOPHEN 500 MG TABLET PO ONE (18:00)
--- NOTE | 2020-03-17 19:17 | NUR ---
NILX2 PER RADIOLOGY
--- NOTE | 2020-03-17 19:24 | NUR ---
[id number]
== END 2020-03-17 19:29 | disposition left against medical advice (07) ==
LOC: ED 19:23
DX: U07.1 COVID-19 (principal)
CPT/HCPCS: 99281

== ENCOUNTER → 2020-12-06 | Outpatient (CLI) | payer OTHER, BC ==
[~2020-12-06] MED LIST changes: -OXYC-302 PO; +OXYC1TAB14 PO
== END | disposition home or self-care (01) ==
LOC: RAD 13:12
PROVIDERS: ATTEND Internal Medicine Gastroenterology
DX: M50.322 Other cervical disc degeneration at C5-C6 level (principal); R13.19 Other dysphagia; M48.02 Spinal stenosis, cervical region; M25.78 Osteophyte, vertebrae; M47.812 Spondylosis without myelopathy or radiculopathy, cervical region
CPT/HCPCS: 72141; 74220